=== PATIENT | female | born 1935 | race Caucasian/White ===

== ENCOUNTER 2018-09-01 19:51 | Inpatient (IN) | payer MEDICARE, BC ==
[2018-09-01 20:55] LABS: BASOPHILS % (AUTO) 1 % (0-3); EOSINOPHILS % (AUTO) 1 % (0-9); HEMATOCRIT 27 % (35-47); HEMOGLOBIN 8.4 gm/dl (12.0-15.5); LYMPHOCYTES % (AUTO) 10.2 % (10-50); MEAN CORPUSCULAR HEMOGLOBIN 25.9 pg (27.0-32.0); MEAN CORPUSCULAR HGB CONC 31.4 gm/dl (32.0-36.0); MEAN CORPUSCULAR VOLUME 82 fL (81-99); MONOCYTES % (AUTO) 5.9 % (0-12); NEUTROPHILS % (AUTO) 82.7 % (37-80)
[2018-09-01 21:10] LABS: ALBUMIN 3.2 gm/dl (3.4-5.0); BILIRUBIN,TOTAL 0.4 mg/dl (0.2-1.0); CALCIUM 8.3 mg/dl (8.5-10.1); CARBON DIOXIDE 27.3 mEq/L (21-32); CREATININE 0.9 mg/dl (0.60-1.00); POTASSIUM 3.4 mMol/L (3.5-5.1); TOTAL PROTEIN 6.3 gm/dl (6.4-8.2)
[2018-09-01 21:34] LABS: INR > 10 (0.86-1.12)
[2018-09-01 21:48] LABS: APPEARANCE,URINE Clear; BILIRUBIN,URINE NEGATIVE (NEGATIVE); COLOR,URINE Yellow; GLUCOSE, URINE (UA) NEGATIVE (NEGATIVE); KETONES,URINE NEGATIVE (NEGATIVE); LEUKOCYTE ESTERASE ,URINE 2+ (NEGATIVE); NITRATE,URINE NEGATIVE (NEGATIVE); OCCULT BLOOD,URINE 2+ (NEG-TRACE); PH,URINE 6.5; UROBILINOGEN,URINE 0.2 (0.2-1.0 EU)
[2018-09-01 22:00] LABS: CRYSTALS NEGATIVE (0-3 AVE/HPF); EPITHELIAL CELLS 0-2 (SQUAMOUS); WBC,URINE 25-35 (0-5AV/HPF)
[2018-09-01 22:01] LABS: BACTERIA 2+ (< 1+)
[2018-09-01] MEDS ORDERED: PHYTONADIONE 10 MG/ML SOL IM ONE (22:03)
[2018-09-01] MEDS ORDERED: PHYTONADIONE 10 MG/ML SOL ONE (22:10)
[2018-09-01] MEDS ORDERED: POTASSIUM CHLORIDE 10 MEQ CAPSULE PO ONE (23:21)
[2018-09-01] MEDS: SODIUM CHLORIDE 0.9% FLUSH 10 ML SOL IV SCH (23:49)
[2018-09-01] MEDS ORDERED: CEFTRIAXONE 1 GM PDS ONE (23:54)
[2018-09-01] MEDS ORDERED: SODIUM CHLORIDE 0.9% 50 ML 50 ML IV ONE (23:54)
[2018-09-02] MEDS: CEFTRIAXONE 1 GM PDS 1 GM in SODIUM CHLORIDE 0.9% 50 ML 50 ML IV SCH ×2 (00:02→23:14)
[2018-09-02] MEDS: ACETAMINOPHEN 325 MG PO PRN ×3 (00:05→16:03)
[2018-09-02] MEDS ORDERED: POTASSIUM CHLORIDE 10 MEQ TER PO ONE (01:00)
[2018-09-02] MEDS: QUETIAPINE FUMARATE 25 MG TAB PO SCH ×3 (01:47→21:00)
[2018-09-02 07:42] LABS: BASOPHILS % (AUTO) 1 % (0-3); EOSINOPHILS % (AUTO) 1 % (0-9); HEMATOCRIT 22 % (35-47); LYMPHOCYTES % (AUTO) 23.4 % (10-50); MEAN CORPUSCULAR HEMOGLOBIN 25.9 pg (27.0-32.0); MEAN CORPUSCULAR HGB CONC 31.4 gm/dl (32.0-36.0); MEAN CORPUSCULAR VOLUME 82 fL (81-99); MONOCYTES % (AUTO) 7.6 % (0-12); NEUTROPHILS % (AUTO) 67.1 % (37-80)
[2018-09-02] MEDS: SODIUM CHLORIDE 0.9% FLUSH 10 ML SOL IV SCH ×3 (08:03→23:15)
[2018-09-02 08:18] LABS: INR 13.05 (0.86-1.12)
[2018-09-02] MEDS ORDERED: Non-Formulary Medication MISC (Nystatin 1 Gm Powder 1 APPL) TOP SCH (09:00)
[2018-09-02] MEDS ORDERED: PHYTONADIONE 5 MG TAB PO ONE (09:14)
[2018-09-02 09:50] LABS: CALCIUM 8.1 mg/dl (8.5-10.1); CARBON DIOXIDE 23.5 mEq/L (21-32); CREATININE 0.8 mg/dl (0.60-1.00); POTASSIUM 3.5 mMol/L (3.5-5.1)
[2018-09-02] MEDS: DILTIAZEM ER 120 MG C24 PO SCH (09:56)
[2018-09-02] MEDS: POTASSIUM CHLORIDE 10 MEQ TER PO SCH (09:56)
[2018-09-02] MEDS: FUROSEMIDE 20 MG TAB PO SCH (09:57)
[2018-09-02] MEDS: SERTRALINE HYDROCHLORIDE 50 MG TAB PO SCH (09:58)
[2018-09-02] MEDS: NYSTATIN 1 GM POW TOP SCH (09:59)
[2018-09-02 19:49] LABS: ABO A; ANTIBODY SCREEN Negative; RH TYPE Positive; UNIT TYPE A POSITIVE
[2018-09-02 19:50] LABS: UNIT TYPE A POSITIVE
[2018-09-02] MEDS: ATORVASTATIN 10 MG TAB PO SCH (21:00)
[2018-09-02] MEDS: GABAPENTIN 100 MG CAP PO SCH (21:00)
[2018-09-02] MEDS ORDERED: SODIUM CHLORIDE 0.9% 50 ML 50 ML IV ONE (23:07)
[2018-09-02] MEDS ORDERED: CEFTRIAXONE 1 GM PDS ONE (23:07)
[2018-09-03 04:43] LABS: INR 1.43 (0.86-1.12)
[2018-09-03 07:23] LABS: BASOPHILS % (AUTO) 1 % (0-3); EOSINOPHILS % (AUTO) 2 % (0-9); HEMATOCRIT 27 % (35-47); HEMOGLOBIN 8.5 gm/dl (12.0-15.5); LYMPHOCYTES % (AUTO) 29.7 % (10-50); MEAN CORPUSCULAR HEMOGLOBIN 26.7 pg (27.0-32.0); MEAN CORPUSCULAR HGB CONC 31.9 gm/dl (32.0-36.0); MEAN CORPUSCULAR VOLUME 84 fL (81-99); MONOCYTES % (AUTO) 8.2 % (0-12); NEUTROPHILS % (AUTO) 59.2 % (37-80)
[2018-09-03 07:25] LABS: ALBUMIN 2.9 gm/dl (3.4-5.0); BILIRUBIN,TOTAL 0.8 mg/dl (0.2-1.0); CALCIUM 8.3 mg/dl (8.5-10.1); CARBON DIOXIDE 21.5 mEq/L (21-32); CREATININE 0.81 mg/dl (0.60-1.00); POTASSIUM 3.3 mMol/L (3.5-5.1); TOTAL PROTEIN 5.6 gm/dl (6.4-8.2)
[2018-09-03] MEDS: SODIUM CHLORIDE 0.9% FLUSH 10 ML SOL IV SCH ×2 (08:43→18:35)
[2018-09-03] MEDS: SERTRALINE HYDROCHLORIDE 50 MG TAB PO SCH (08:44)
[2018-09-03] MEDS: FUROSEMIDE 20 MG TAB PO SCH (08:44)
[2018-09-03] MEDS: QUETIAPINE FUMARATE 25 MG TAB PO SCH ×2 (08:45→20:16)
[2018-09-03] MEDS: DILTIAZEM ER 120 MG C24 PO SCH (08:45)
[2018-09-03] MEDS: NYSTATIN 1 GM POW TOP SCH (08:45)
[2018-09-03] MEDS: ACETAMINOPHEN 325 MG PO PRN ×2 (08:48→20:21)
[2018-09-03] MEDS: POTASSIUM CHLORIDE 10 MEQ TER PO SCH ×3 (08:48→20:13)
[2018-09-03 15:45] VITALS: O2SAT 96
[2018-09-03] MEDS ORDERED: WARFARIN SODIUM 2.5 MG TAB PO SCH (18:00)
[2018-09-03] MEDS ORDERED: SODIUM CHLORIDE 0.9% 1000ML 500 ML IV ONE (18:01)
[2018-09-03] MEDS: ATORVASTATIN 10 MG TAB PO SCH (20:14)
[2018-09-03] MEDS: GABAPENTIN 100 MG CAP PO SCH (20:15)
[2018-09-04] MEDS: SODIUM CHLORIDE 0.9% FLUSH 10 ML SOL IV SCH ×2 (01:06→08:41)
[2018-09-04 07:20] VITALS: BP 145/86; PULSE 78; RESP 18; TEMP 97.7
[2018-09-04 07:26] LABS: BASOPHILS % (AUTO) 1 % (0-3); CALCIUM 8.3 mg/dl (8.5-10.1); CARBON DIOXIDE 24.9 mEq/L (21-32); CREATININE 0.76 mg/dl (0.60-1.00); EOSINOPHILS % (AUTO) 4 % (0-9); HEMATOCRIT 27 % (35-47); HEMOGLOBIN 8.5 gm/dl (12.0-15.5); INR 1.08 (0.86-1.12); LYMPHOCYTES % (AUTO) 27.1 % (10-50); MEAN CORPUSCULAR HEMOGLOBIN 26.7 pg (27.0-32.0); MEAN CORPUSCULAR VOLUME 83 fL (81-99); MONOCYTES % (AUTO) 9.1 % (0-12); NEUTROPHILS % (AUTO) 58.8 % (37-80); POTASSIUM 3.7 mMol/L (3.5-5.1)
[2018-09-04] MEDS: FUROSEMIDE 20 MG TAB PO SCH (08:45)
[2018-09-04] MEDS: DILTIAZEM ER 120 MG C24 PO SCH (08:45)
[2018-09-04] MEDS: POTASSIUM CHLORIDE 10 MEQ TER PO SCH (08:45)
[2018-09-04] MEDS: ACETAMINOPHEN 325 MG PO PRN (08:45)
[2018-09-04] MEDS: QUETIAPINE FUMARATE 25 MG TAB PO SCH (08:46)
[2018-09-04] MEDS: SERTRALINE HYDROCHLORIDE 50 MG TAB PO SCH (08:46)
[2018-09-04] MEDS: NYSTATIN 1 GM POW TOP SCH (08:46)
[2018-09-04] MEDS ORDERED: PNEUMOC 13-VAL CONJ-DIP CRM/PF 0.5 ML SYRINGE IM ONE (09:47)
[2018-09-04 09:53] LABS: APPEARANCE,URINE Clear; BILIRUBIN,URINE NEGATIVE (NEGATIVE); COLOR,URINE Yellow; GLUCOSE, URINE (UA) NEGATIVE (NEGATIVE); KETONES,URINE NEGATIVE (NEGATIVE); LEUKOCYTE ESTERASE ,URINE NEGATIVE (NEGATIVE); NITRATE,URINE NEGATIVE (NEGATIVE); OCCULT BLOOD,URINE NEGATIVE (NEG-TRACE); UROBILINOGEN,URINE 0.2 (0.2-1.0 EU)
[2018-09-04 09:59] LABS: BACTERIA NEGATIVE (< 1+); CRYSTALS NEGATIVE (0-3 AVE/HPF); EPITHELIAL CELLS 0-2 (SQUAMOUS); RBC,URINE NEG (0-3AV/HPF); WBC,URINE 0-1 (0-5AV/HPF)
== END 2018-09-04 11:30 | DRG 948 ==
LOC: ED 19:51 → ACUTE CARE 22:29
PROVIDERS: ADMIT Emergency Medicine; ATTEND Emergency Medicine
PROC: 30233N1 Transfusion of Nonautologous Red Blood Cells into Peripheral Vein, Percutaneous Approach (ICD-10-PCS; principal; 2018-09-02)
DX: Z79.01 Long term (current) use of anticoagulants (principal); R79.1 Abnormal coagulation profile; N39.0 Urinary tract infection, site not specified; D64.9 Anemia, unspecified; G31.84 Mild cognitive impairment of uncertain or unknown etiology; I10 Essential (primary) hypertension; E78.5 Hyperlipidemia, unspecified; I48.91 Unspecified atrial fibrillation; R19.7 Diarrhea, unspecified; E87.6 Hypokalemia
CPT/HCPCS: 36415; 51798; 80048; 80053; 81001; 82272; 85018; 85025; 85610; 86850; 86900; 86901; 86920; 87088; 90670; 96372; 99070; 99223; 99284; J0696; J3430; P9016; A9270-GY; G0008